=== PATIENT | female | born 1935 | race Caucasian/White ===

== ENCOUNTER 2017-01-27 12:42 | Inpatient (IN) | payer OTHER ==
[~2017-01-27] VITALS: Ht 165.1 cm; Wt 66.5 kg
[2017-01-27 14:12] LABS: Basophils # (auto) 0 uL; Eosinophils # (auto) 0 uL; Hematocrit 32.7 % (36.0-46.0); Hemoglobin 10.7 g/dL (12.2-16.2); Lymphocytes # (auto) 0.5 uL; Lymphocytes % (auto) 10.5 % (10.0-50.0); Mean Corpuscular Hemoglobin 29.3 pg (28.0-32.0); Mean Corpuscular Hgb Conc. 32.7 g/dL (32.0-36.0); Mean Corpuscular Volume 89.7 fL (80.0-100.0); Mean Platelet Volume 7.3 fL (7.4-10.4); Monocytes # (auto) 0.3 uL; Monocytes % (auto) 7.2 % (0.0-12.0); Neutrophils # (auto) 3.6 uL; Neutrophils % (auto) 82.3 % (37.0-80.0); Platelet Count (auto) 289 10^3/uL (140-450); Red Cell Distribution Width 17.3 % (11.6-16.0); White Blood Cell 4.4 10^3/uL (4.4-10.8)
[2017-01-27 14:36] LABS: Albumin 3.5 g/dL (3.4-5.0); BUN/Creatinine Ratio 25.6; Bilirubin, Total 0.4 mg/dL (0.2-1.0); Calcium 8.9 mg/dL (8.5-10.1); Potassium 3.7 mmol/L (3.5-5.1)
[2017-01-27] MEDS ORDERED: methylPREDNISolone SOD SUCC 125 MG/2 ML VL IV ONE (18:45)
[2017-01-27] MEDS ORDERED: LEVOFLOXACIN 500MG 100 ML IV ONE (18:45)
[2017-01-27] MEDS ORDERED: FUROSEMIDE 40 MG/4 ML VIAL IV ONE (18:45)
[2017-01-27] MEDS ORDERED: cefTRIAXone 1GM/50ML D5W 50 ML IV ONE (19:30)
[2017-01-27] MEDS ORDERED: HYDROcodone-ACET 10/325MG TAB PO PRN (19:30)
[2017-01-27] MEDS ORDERED: TEMAZEPAM 15 MG CAP PO PRN (19:45)
[2017-01-27] MEDS ORDERED: ACETAMINOPHEN 325 MG TAB PO PRN (19:45)
[2017-01-27] MEDS ORDERED: MORPHINE SULF INJ 2 MG/ML SYRINGE 1ML IV PRN ×2 (19:45)
[2017-01-27] MEDS ORDERED: ONDANSETRON HCL 4 MG/2 ML VIAL IV PRN (19:45)
[2017-01-27] MEDS ORDERED: NITROGLYCERIN 0.4 MG SL TAB SL PRN (19:45)
[2017-01-27] MEDS ORDERED: POTASSIUM CHL 10 Meq TABLET PO ONE (19:45)
[2017-01-27] MEDS ORDERED: DOCUSATE SOD 100 MG CAP PO PRN (19:45)
[2017-01-27] MEDS: PANTOPRAZOLE 40 MG TAB PO SCH (20:00)
[2017-01-27] MEDS ORDERED: MULTIPLE VITAMIN TAB PO ONE (20:00)
[2017-01-27] MEDS ORDERED: cloNIDine HCL 0.1 MG TAB PO PRN (20:00)
[2017-01-27] MEDS ORDERED: PANTOPRAZOLE 40 MG TAB PO ONE (20:00)
[2017-01-27 20:07] LABS: B-Type Natriuretic Peptide 1908.23 pg/mL (0-100)
[2017-01-27 20:08] LABS: Temperature: 22.2 C (20.0-25.0)
[2017-01-27] MEDS ORDERED: AZITHROMYCIN 500MG/D5W 250ML 250 ML IV ONE (20:30)
[2017-01-27] MEDS: SUCRALFATE 1 GM TAB PO SCH (21:41)
[2017-01-27] MEDS: GABAPENTIN 100 MG CAP PO SCH (21:41)
[2017-01-27] MEDS: SODIUM CHLOR 0.9% PF (SALINE LOCK) 10ML VIAL IV SCH (21:41)
[2017-01-27 21:43] LABS: Urine RBC None Seen /hpf (0 - 4)
[2017-01-27] MEDS: ATENOLOL 25 MG TAB PO SCH (21:43)
[2017-01-27 21:58] LABS: Urine Bilirubin Negative (Negative); Urine Blood Negative /uL (Negative); Urine Glucose Normal (Normal); Urine Ketone Negative (Negative); Urine Nitrite Negative (Negative); Urine Urobilinogen Normal (Negative)
[2017-01-27 22:00] VITALS: BP 156/85
[2017-01-27] MEDS ORDERED: FAMOTIDINE 20 MG TAB PO SCH (22:00)
[2017-01-27 22:05] LABS: Urine Color Straw (Yellow)
[2017-01-27 22:06] LABS: Urine Squamous Epithelial Cell FEW /hpf (<5)
[2017-01-27 22:22] LABS: B-Type Natriuretic Peptide 2593.64 pg/mL (0-100); Temperature: 21.9 C (20.0-25.0)
[2017-01-27 22:59] VITALS: BP 156/85
[2017-01-28] VITALS (7 sets, daily range): BP systolic 121–140; BP diastolic 53–84
[2017-01-28] MEDS: methylPREDNISolone SOD SUCC 40 MG/ML VL IV SCH ×5 (00:09→23:52)
[2017-01-28] MEDS: ALBUTEROL SULF 2.5 MG/0.5ML(0.5%) NEB SOLN NEB SCH ×4 (00:52→18:34)
[2017-01-28] MEDS: IPRATROPIUM BROM 0.5 MG/2.5ML INH SOL NEB SCH ×4 (00:52→18:34)
[2017-01-28] MEDS: BUDESONIDE (INHALATION) 0.5 MG/2 ML NEB NEB SCH ×3 (00:57→18:35)
[2017-01-28] MEDS ORDERED: INFLUENZA QUAD 2016-2017 0.5 ML SYRG IM ONE (03:00)
[2017-01-28] MEDS ORDERED: PNEUMOCOCCAL VACC POLYS 25 MCG/0.5 ML VIAL IM ONE (03:00)
[2017-01-28] MEDS ORDERED: LANS30CA63 PO (04:06)
[2017-01-28] MEDS ORDERED: GABA250S2 PO (04:06)
[2017-01-28] MEDS ORDERED: ATE50T PO (04:06)
[2017-01-28] MEDS ORDERED: SUC1LQ PO (04:06)
[2017-01-28] MEDS ORDERED: LEVO137T3 PO (04:06)
[2017-01-28] MEDS ORDERED: ALBU1AER4 IN (04:06)
[2017-01-28] MEDS ORDERED: FLUT110A INH (04:06)
[2017-01-28] MEDS ORDERED: PRE5T PO (04:06)
[2017-01-28] MEDS ORDERED: AMOX250T8 PO (04:06)
[2017-01-28] MEDS ORDERED: RANI-226 PO (04:06)
[2017-01-28] MEDS ORDERED: HYDR-4416 PO (04:06)
[2017-01-28] MEDS: SUCRALFATE 1 GM TAB PO SCH ×4 (05:57→21:30)
[2017-01-28] MEDS: LEVOTHYROXINE SODIUM 112 MCG TAB PO SCH (05:57)
[2017-01-28] MEDS: LEVOTHYROXINE SODIUM 25 MCG TAB PO SCH (05:57)
[2017-01-28] MEDS: SODIUM CHLOR 0.9% PF (SALINE LOCK) 10ML VIAL IV SCH ×3 (05:58→22:37)
[2017-01-28 05:59] LABS: Basophils # (auto) 0 uL; Basophils % (auto) 0.1 % (0.0-2.0); Eosinophils # (auto) 0 uL; Hematocrit 30.4 % (36.0-46.0); Hemoglobin 9.7 g/dL (12.2-16.2); Lymphocytes # (auto) 0.3 uL; Lymphocytes % (auto) 9.3 % (10.0-50.0); Mean Corpuscular Hemoglobin 28.5 pg (28.0-32.0); Mean Corpuscular Hgb Conc. 31.9 g/dL (32.0-36.0); Mean Corpuscular Volume 89.4 fL (80.0-100.0); Monocytes # (auto) 0.1 uL; Monocytes % (auto) 3.6 % (0.0-12.0); Neutrophils # (auto) 2.6 uL; Platelet Count (auto) 265 10^3/uL (140-450); Red Cell Distribution Width 16.7 % (11.6-16.0)
[2017-01-28 06:30] LABS: BUN/Creatinine Ratio 22.2; Calcium 7.8 mg/dL (8.5-10.1); Potassium 3.5 mmol/L (3.5-5.1)
[2017-01-28 06:33] LABS: Bilirubin, Total 0.3 mg/dL (0.2-1.0); Total Protein 6.1 g/dL (6.4-8.2)
[2017-01-28] MEDS ORDERED: cefTRIAXone 1GM/50ML D5W 50 ML IV SCH (09:00)
[2017-01-28] MEDS ORDERED: AZITHROMYCIN 500MG/D5W 250ML 250 ML IV SCH (10:00)
[2017-01-28] MEDS: FUROSEMIDE 40 MG/4 ML VIAL IV SCH (10:18)
[2017-01-28] MEDS: POTASSIUM CHL 10 Meq TABLET PO SCH (10:20)
[2017-01-28] MEDS: ATENOLOL 25 MG TAB PO SCH ×2 (10:21→21:30)
[2017-01-28] MEDS: GABAPENTIN 100 MG CAP PO SCH ×2 (10:22→21:30)
[2017-01-28] MEDS: PANTOPRAZOLE 40 MG TAB PO SCH (10:23)
[2017-01-28] MEDS: MULTIPLE VITAMIN TAB PO SCH (10:23)
[2017-01-29] MEDS: IPRATROPIUM BROM 0.5 MG/2.5ML INH SOL NEB SCH ×3 (00:22→11:51)
[2017-01-29] MEDS: ALBUTEROL SULF 2.5 MG/0.5ML(0.5%) NEB SOLN NEB SCH ×3 (00:22→11:51)
[2017-01-29 05:09] VITALS: BP 124/49
[2017-01-29] MEDS: LEVOTHYROXINE SODIUM 112 MCG TAB PO SCH (05:33)
[2017-01-29] MEDS: methylPREDNISolone SOD SUCC 40 MG/ML VL IV SCH ×2 (05:33→12:00)
[2017-01-29 05:34] LABS: Basophils # (auto) 0 uL; Eosinophils # (auto) 0 uL; Hematocrit 30.3 % (36.0-46.0); Hemoglobin 9.9 g/dL (12.2-16.2); Lymphocytes # (auto) 0.3 uL; Lymphocytes % (auto) 6.5 % (10.0-50.0); Mean Corpuscular Hemoglobin 28.9 pg (28.0-32.0); Mean Corpuscular Hgb Conc. 32.7 g/dL (32.0-36.0); Mean Corpuscular Volume 88.4 fL (80.0-100.0); Monocytes # (auto) 0.2 uL; Monocytes % (auto) 4.7 % (0.0-12.0); Neutrophils # (auto) 4.4 uL; Neutrophils % (auto) 88.8 % (37.0-80.0); Platelet Count (auto) 267 10^3/uL (140-450); Red Cell Distribution Width 17.2 % (11.6-16.0); White Blood Cell 4.9 10^3/uL (4.4-10.8)
[2017-01-29] MEDS: SUCRALFATE 1 GM TAB PO SCH ×2 (05:34→11:30)
[2017-01-29] MEDS: SODIUM CHLOR 0.9% PF (SALINE LOCK) 10ML VIAL IV SCH ×2 (05:34→14:00)
[2017-01-29] MEDS: LEVOTHYROXINE SODIUM 25 MCG TAB PO SCH (05:34)
[2017-01-29 06:12] LABS: Potassium 3.5 mmol/L (3.5-5.1)
[2017-01-29 06:17] LABS: BUN/Creatinine Ratio 37.8; Calcium 8.3 mg/dL (8.5-10.1); Magnesium 2.2 mg/dL (1.6-2.6); Phosphorus 4.2 mg/dL (2.5-4.90)
[2017-01-29] MEDS: BUDESONIDE (INHALATION) 0.5 MG/2 ML NEB NEB SCH (06:59)
[2017-01-29 08:00] VITALS: BP 140/51
[2017-01-29] MEDS: POTASSIUM CHL 10 Meq TABLET PO SCH (09:52)
[2017-01-29] MEDS: MULTIPLE VITAMIN TAB PO SCH (09:52)
[2017-01-29] MEDS: GABAPENTIN 100 MG CAP PO SCH (09:52)
[2017-01-29] MEDS: PANTOPRAZOLE 40 MG TAB PO SCH (09:53)
[2017-01-29] MEDS: ATENOLOL 25 MG TAB PO SCH (09:53)
[2017-01-29] MEDS: FUROSEMIDE 40 MG/4 ML VIAL IV SCH (09:54)
[2017-01-29] MEDS ORDERED: FURO20TA PO (11:01)
[2017-01-29] MEDS ORDERED: POTA-167 PO (11:01)
[2017-01-29 12:09] VITALS: BP 122/65
[2017-01-29 12:58] VITALS: BP 122/65
== END 2017-01-29 14:06 | disposition home or self-care (01) | DRG 291 ==
LOC: ER 12:42 → TELE 12:43 → TELE-EAST 20:37
PROVIDERS: ADMIT Internal Medicine; ATTEND Nurse Practitioner Acute Care
DX: I13.0 Hypertensive heart and chronic kidney disease with heart failure and stage 1 through stage 4 chronic kidney disease, or unspecified chronic kidney disease (principal); J18.9 Pneumonia, unspecified organism; I50.33 Acute on chronic diastolic (congestive) heart failure; J45.901 Unspecified asthma with (acute) exacerbation; E87.1 Hypo-osmolality and hyponatremia; J44.0 Chronic obstructive pulmonary disease with (acute) lower respiratory infection; D63.8 Anemia in other chronic diseases classified elsewhere; E03.9 Hypothyroidism, unspecified; G89.29 Other chronic pain; K21.9 Gastro-esophageal reflux disease without esophagitis; N18.2 Chronic kidney disease, stage 2 (mild); T38.0X5A Adverse effect of glucocorticoids and synthetic analogues, initial encounter; Z85.72 Personal history of non-Hodgkin lymphomas; Z87.891 Personal history of nicotine dependence; Z23 Encounter for immunization; Z90.49 Acquired absence of other specified parts of digestive tract; Z82.49 Family history of ischemic heart disease and other diseases of the circulatory system; Z80.9 Family history of malignant neoplasm, unspecified; Z88.6 Allergy status to analgesic agent; Z88.8 Allergy status to other drugs, medicaments and biological substances; Z91.048 Other nonmedicinal substance allergy status; Z79.899 Other long term (current) drug therapy
CPT/HCPCS: 36415; 36600; 71020; 80048; 80053; 81001; 82805; 83605; 83735; 83880; 84100; 84443; 84484; 85025; 87040; 87070; 87205; 93005; 93306; 94640; 96374; 96375; 97001; J0696; J1956

== ENCOUNTER → 2017-08-27 | Day surgery (SDC) | payer OTHER ==
[~2017-08-27] VITALS: Ht 165.1 cm; Wt 59.4 kg
[~2017-08-27] MED LIST: ALBU1AER4 IN; ANGIOMAX 250 MG VIAL IV ONE; ATE50T PO; FLUT110A INH; FURO20TA PO; GABA250S2 PO; HYDR-4416 PO; IOHEXOL 350 MG/ML 100ML IJ ONE; LANS30CA63 PO; LEVO137T3 PO; LIDOCAINE 2%HCL (LOCAL ANESTH.) INJ 20ML MDV ONE; MIDAZOLAM HCL 1MG/1ML-2 ML VIAL ONE; POTA-167 PO; RANI-226 PO; SODIUM CHL 0.9% 0 ML ONE; SUC1LQ PO; fentaNYL CITRATE 100 MCG/2 ML VL ONE
== END | disposition home or self-care (01) ==
LOC: CATH 09:45
PROVIDERS: ATTEND Internal Medicine Cardiovascular Disease
DX: I25.10 Atherosclerotic heart disease of native coronary artery without angina pectoris (principal); I35.0 Nonrheumatic aortic (valve) stenosis; I10 Essential (primary) hypertension; E78.5 Hyperlipidemia, unspecified; Z51.11 Encounter for antineoplastic chemotherapy; Z88.8 Allergy status to other drugs, medicaments and biological substances
CPT/HCPCS: 93005; 93458; C1760; C1894; J1644; J2250; J3010; J7030; Q9967; 99152; 99153

== ENCOUNTER → 2018-02-10 | Day surgery (SDC) | payer OTHER ==
[~2018-02-10] MED LIST changes: +ACETAMINOPHEN 325 MG TAB PO ONE; +ACETAMINOPHEN 650 mg PER 20 mL UD PO ONE; -ANGIOMAX 250 MG VIAL IV ONE; -IOHEXOL 350 MG/ML 100ML IJ ONE; -LIDOCAINE 2%HCL (LOCAL ANESTH.) INJ 20ML MDV ONE; -MIDAZOLAM HCL 1MG/1ML-2 ML VIAL ONE; -SODIUM CHL 0.9% 0 ML ONE; -SUC1LQ PO; +SUCR1SUS10 PO; +diphenhdrAMINE HCL 50 MG/1 ML VL IV ONE; -fentaNYL CITRATE 100 MCG/2 ML VL ONE
[2018-02-10 11:30] VITALS: BP 141/54
[2018-02-10] MEDS: FUROSEMIDE 20 MG/2 ML VIAL IV ONE (11:35)
[2018-02-10 11:58] LABS: Basophils # (auto) 0 uL; Eosinophils # (auto) 0.1 uL; Hematocrit 28.3 % (36.0-46.0); Lymphocytes # (auto) 1.4 uL; Mean Corpuscular Hemoglobin 24.9 pg (28.0-32.0)
[2018-02-10 12:01] LABS: Basophils % (auto) 0.5 % (0.0-2.0); Eosinophils % (auto) 2.4 % (0.0-7.0); Hemoglobin 8.9 g/dL (12.2-16.2); Lymphocytes % (auto) 30.4 % (10.0-50.0); Mean Corpuscular Hgb Conc. 31.5 g/dL (32.0-36.0); Monocytes # (auto) 0.3 uL; Monocytes % (auto) 6.5 % (0.0-12.0); Neutrophils # (auto) 2.7 uL; Neutrophils % (auto) 60.2 % (37.0-80.0); Nucleated Red Blood Cells % 0.2 %; Platelet Count (auto) 152 10^3/uL (140-450); Red Blood Cells 3.59 10^6/uL (4.0-5.20); Red Cell Distribution Width 18.7 % (11.8-14.3); White Blood Cell 4.5 10^3/uL (4.4-10.8)
== END | disposition home or self-care (01) ==
LOC: SUR 08:06
PROVIDERS: ATTEND Internal Medicine
DX: D64.9 Anemia, unspecified (principal); Z88.8 Allergy status to other drugs, medicaments and biological substances; Z88.6 Allergy status to analgesic agent; J44.9 Chronic obstructive pulmonary disease, unspecified; J43.9 Emphysema, unspecified; Z87.891 Personal history of nicotine dependence
CPT/HCPCS: 36415; 36430; 85025; 86850; 86900; 86901; 86920; J1642; J1940; P9016